=== PATIENT | male | born 1990 ===

== ENCOUNTER 2020-01-31 15:48 | Emergency (ER) | payer OTHER ==
[2020-01-31 16:27] VITALS: RESP 18
[2020-01-31] MEDS ORDERED: HYDROcodone/APAP 5-325MG 1 EACH TAB PO STA (17:16)
--- NOTE | 2020-01-31 17:58 | XR ---
EXAMINATION TYPE: XR ankle complete LT DATE OF EXAM: 01/31/2020 COMPARISON: NONE HISTORY: Ankle pain. Foot pain TECHNIQUE: 3 views FINDINGS: There is soft tissue swelling over the lateral malleolus. Ankle mortise is anatomic. I see no fracture. IMPRESSION: Soft tissue swelling. No fracture.
--- NOTE | 2020-01-31 17:59 | XR ---
EXAMINATION TYPE: XR foot complete LT DATE OF EXAM: 01/31/2020 COMPARISON: NONE HISTORY: Foot pain TECHNIQUE: 3 views FINDINGS: Metatarsals are intact. I see no fracture nor dislocation. Joint spaces are fairly normal. IMPRESSION: Negative left foot exam.
--- NOTE | 2020-01-31 18:42 | ED ---
General Adult HPI - General Chief complaint: Extremity Injury, Lower Stated complaint: ankle injury Time Seen by Provider: 01/31/20 16:55 Source: patient, RN notes reviewed, old records reviewed Mode of arrival: ambulatory Limitations: no limitations - History of Present Illness Initial comments: 29-year-old male patient is due for evaluation of left ankle sprain. Patient reports that he was running playing soccer when he suffered a left ankle inversion injury. Having lots of pain and swelling on the lateral malleolus anterior foot. Denies any trauma to head or neck. Denies any other acute complaints. Systemic: Pt denies fatigue, fever/chills, rash. Pt denies weakness, night sweats, weight loss. Neuro: Pt denies headache, visual disturbances, syncope or pre-syncope. HEENT: Pt denies ocular discharge or irritation, otalgia, rhinorrhea, pharyngitis or notable lymphadenopathy. Cardiopulmonary: Pt denies chest pain, SOB, heart palpitations, dyspnea on exertion. Abdominal/GI: Pt denies abdominal pain, n/v/d. : Pt denies dysuria, burning w/ urination, frequency/urgency. Denies new onset urinary or bowel incontinence. MSK: Pt denies myalgia, loss of strength or function in extremities. Neuro: Pt denies new onset weakness, paresthesias. - Related Data Allergies Allergy/AdvReac Type Severity Reaction Status Date / Time No Known Allergies Allergy Verified 01/31/20 17:27 Review of Systems ROS Statement: Those systems with pertinent positive or pertinent negative responses have been documented in the HPI. ROS Other: All systems not noted in ROS Statement are negative. Past Medical History Past Medical History: No Reported History History of Any Multi-Drug Resistant Organisms: None Reported Past Surgical History: No Surgical Hx Reported Past Psychological History: No Psychological Hx Reported Smoking Status: Current every day smoker Past Alcohol Use History: Occasional Past Drug Use History: None Reported General Exam - General Exam Comments Initial Comments: Constitutional: NAD, AOX3, Pt has pleasant affect. HEENT: NC/AT, trachea midline, neck supple, no lymphadenopathy. Posterior pharynx non erythematous, without exudates. External ears appear normal, without discharge. Mucous membranes moist. Eyes PERRLA, EOM intact. There is no scleral icterus. No pallor noted. Cardiopulmonary: RRR, no murmurs, rubs or gallops, no JVD noted. Lungs CTAB in anterior and posterior carrillo. No peripheral edema. Abdominal exam: Abdomen soft and non-distended. Abdomen non-tender to palpation in all 4 quadrants. Bowel sounds active in LLQ. No hepatosplenomegaly. Neuro: CN II-XII grossly intact. No nuchal rigidity. MSK: Left foot and ankle are tender palpation soft tissue swelling at the lateral malleolus.. No laceration. No midfoot tenderness. Sensation is intact. No posterior calf tenderness bilaterally, homans sign negative bilaterally. Posterior tibialis and radial pulse +2 bilaterally. Sensation i ntact in upper and lower extremities. Full active ROM in upper and lower extremities, 5/5 stregnth. Limitations: no limitations Course Vital Signs 01/31/20 16:22 Temperature 99 F Pulse Rate 85 Respiratory 18 Rate Blood Pressure 112/69 O2 Sat by Pulse 100 Oximetry Medical Decision Making - Medical Decision Making 29-year-old male patient presents ED for evaluation of left ankle sprain inversion injury while playing soccer Vital signs are stable, afebrile. Physical exam displayed soft tissue swelling past the lateral malleolus. Plain films ankle are negative for acute fracture. Patient placed in ankle stirrup splint. He'll be nonweightbearing with crutches will follow-up with orthopedic consult for further evaluation. Case discussed with Dr. Park. Disposition Clinical Impression: Ankle sprain Disposition: ADMITTED IP TO THIS HOSP Condition: Stable Instructions (If sedation given, give patient instructions): Ankle Sprain (ED) Additional Instructions: continue to wear ankle stirrup. Follow up with primary care provider tomorrow. Follow up with orthopedic consult tomorrow. Do not bear weight on left lower extremity. Use crutches. Return to ER with any worsening symptoms. Is patient prescribed a controlled substance at d/c from ED?: No Referrals: None,Stated [Primary Care Provider] - 1-2 days Aubrie Malone DO [Doctor of Osteopathic Medicine] - 1-2 days
[2020-01-31] MEDS: MORPHINE SULFATE 2 MG/ML SYRINGE IM STA ×2 (18:52→18:54)
[2020-01-31 19:27] VITALS: BP 122/88; PULSE 86; TEMP 97.2
== END 2020-01-31 19:27 | disposition other institution (70) ==
LOC: EC 15:48
DX: S93.402A Sprain of unspecified ligament of left ankle, initial encounter (principal); F17.200 Nicotine dependence, unspecified, uncomplicated; X50.9XXA Other and unspecified overexertion or strenuous movements or postures, initial encounter; Y93.66 Activity, soccer
CPT/HCPCS: 29515; 99284